=== PATIENT | female | born 1970 | race African-American/Black ===

== ENCOUNTER 2016-09-22 22:32 | Emergency (ER) | payer OTHER ==
[~2016-09-22] VITALS: Ht 160 cm; Wt 79.0 kg
[2016-09-23 00:57] VITALS: BP 106/78
[2016-09-23] MEDS ORDERED: HYDROCODONE/ACETAMINOPHEN 5/325MG TABLET PO ONE (01:00)
== END 2016-09-23 00:59 | disposition home or self-care (01) ==
LOC: ER 22:33
DX: L03.019 Cellulitis of unspecified finger (principal)
CPT/HCPCS: 99283

== ENCOUNTER 2017-09-18 22:28 | Emergency (ER) | payer OTHER ==
[~2017-09-18] VITALS: Ht 160 cm; Wt 77.0 kg
[2017-09-19 03:40] VITALS: BP 121/69
== END 2017-09-19 04:03 | disposition home or self-care (01) ==
LOC: ER 22:28
DX: R05 Cough (principal); R09.89 Other specified symptoms and signs involving the circulatory and respiratory systems
CPT/HCPCS: 71045; 81025; 99283

== ENCOUNTER 2018-02-14 00:46 | Emergency (ER) | payer OTHER ==
[~2018-02-14] VITALS: Ht 154.9 cm; Wt 81.0 kg
[2018-02-14 05:20] VITALS: BP 121/69
[2018-02-14] MEDS: ACETAMINOPHEN 325MG TABLET PO ONE (05:30)
== END 2018-02-14 08:56 | disposition home or self-care (01) ==
LOC: ER 00:46
DX: M65.4 Radial styloid tenosynovitis [de Quervain] (principal)
CPT/HCPCS: 29125; 73110; 73130; 99284

== ENCOUNTER 2018-02-16 20:14 | Emergency (ER) | payer OTHER ==
[~2018-02-16] VITALS: Ht 154.9 cm; Wt 80.0 kg
[2018-02-16 20:30] VITALS: BP 142/72
== END 2018-02-17 03:01 | disposition left against medical advice (07) ==
LOC: ER 20:14
DX: Z53.21 Procedure and treatment not carried out due to patient leaving prior to being seen by health care provider (principal)

== ENCOUNTER 2022-05-02 03:08 | Emergency (ER) | payer MEDICAID, OTHER ==
[~2022-05-02] VITALS: Ht 162.6 cm; Wt 82.0 kg
[2022-05-02 03:29] VITALS: BP 133/83
[2022-05-02] MEDS ORDERED: CYCLOBENZAPRINE 10MG TABLET PO ONE (04:30)
[2022-05-02] MEDS ORDERED: CYCL10TA21 MT (04:51)
[2022-05-02] MEDS ORDERED: CYCLOBENZAPRINE 10MG TABLET PO NR (05:15)
== END 2022-05-02 05:40 | disposition home or self-care (01) ==
LOC: ER 03:08
DX: M25.572 Pain in left ankle and joints of left foot (principal); Z88.6 Allergy status to analgesic agent
CPT/HCPCS: 73610; 99283

== ENCOUNTER 2023-01-10 17:38 | Emergency (ER) | payer MEDICAID, OTHER ==
[~2023-01-10] VITALS: Ht 160 cm; Wt 72.0 kg
[~2023-01-10 17:38] MED LIST: CYCL10TA21 MT
[2023-01-10 17:43] VITALS: BP 121/58; PULSE 82; RESP 20; TEMP 98.3; O2SAT 98
== END 2023-01-10 19:41 | disposition home or self-care (01) ==
LOC: ER 17:38
DX: G89.29 Other chronic pain (principal); M25.512 Pain in left shoulder
CPT/HCPCS: 73030; 81025; 99283